=== PATIENT | male | born 1950 | race African-American/Black ===

== ENCOUNTER 2024-12-14 11:25 | Emergency (ER) | payer MEDICAID ==
[~2024-12-14] VITALS: Ht 180.3 cm; Wt 109.0 kg
[2024-12-14 11:27] VITALS: O2SAT 96
[2024-12-14 11:42] VITALS: BP 157/93; PULSE 61; RESP 20; TEMP 98; O2SAT 98
[2024-12-14 12:34] LABS: HEMATOCRIT. 44.5 % (42.0-52.0); HEMOGLOBIN. 14.6 g/dL (14.0-18.0); MEAN CORPUSCULAR HGB CONC 32.7 g/dL (31.0-37.0); MEAN CORPUSCULAR VOLUME 88.8 fL (80.0-94.0); MEAN PLATELET VOLUME 10.8 fl (7.4-10.4); PLATELET 161 x1000/uL (130-400); RED BLOOD CELL COUNT 5.02 mill/uL (4.7-6.1); RED CELL DISTRIBUTION WIDTH 13.7 % (11.6-14.6); WHITE BLOOD COUNT 11.5 x1000/uL (4.5-11.0)
[2024-12-14 12:37] LABS: DIFFERENTIAL COMMENT 1
[2024-12-14 12:38] LABS: CHLORIDE 109 mEq/L (98-107); POTASSIUM 4.2 mEq/L (3.5-5.1); SODIUM 141 mEq/L (136-145)
[2024-12-14 12:39] LABS: CALCIUM 9.7 mg/dL (8.7-10.4); CARBON DIOXIDE 24 mEq/L (21-32)
[2024-12-14 12:44] LABS: CREATININE 1.2 mg/dL (0.6-1.3); GLUCOSE 148 mg/dL (70-105); UREA NITROGEN BLOOD 11 mg/dL (9-23)
[2024-12-14 12:45] LABS: TROPONIN I HIGH SENSITIVITY 4 ng/L (3.0-53)
[2024-12-14] MEDS: ONDANSETRON 4MG ODT PO ONE (14:05)
[2024-12-14] MEDS: FAMOTIDINE 20MG TABLET PO ONE (14:05)
[2024-12-14] MEDS: MAGNESIUM/ALUMINUM HYDROXIDE/SIMETHICONE 30ML UDC PO ONE (14:05)
[2024-12-14 17:18] LABS: PLATELET ESTIMATE NORMAL
== END 2024-12-14 14:29 | disposition home or self-care (01) ==
LOC: ER 11:31
DX: B34.9 Viral infection, unspecified (principal); Z98.890 Other specified postprocedural states
CPT/HCPCS: 99284; 80048; 83690; 85025; 84484; 36415; 93005; Q0162